=== PATIENT | male | born 1945 | race Caucasian/White ===

== ENCOUNTER 2024-09-24 17:05 | Emergency (ER) | payer OTHER, SELFPAY ==
--- NOTE | ~2024-09-24 | CT_ITS ---
CLINICAL HISTORY: swelling LLW, neg DVT, bakers rupture? CT left leg without contrast Comparison: US - US VENOUS DUPLEX LE LT - 09/24/24 21:16 EDT Findings: Extensive subcutaneous edema. Popliteal cyst with no evidence of rupture. No masses or fluid collections otherwise. Moderate to severe knee degenerative change with joint space loss most significant in the medial compartment. No significant ankle degenerative change. Physiologic fluid in the knee joint. No ankle effusion. Prominent vascular calcifications. Impression: 1. Extensive subcutaneous edema of uncertain etiology. 2. Popliteal cyst without evidence of rupture. This document has been electronically signed by: Gilma Callaway MD on 09/24/2024 22:45:51
--- NOTE | ~2024-09-24 | US_ITS ---
CLINICAL HISTORY: swelling, bakers Venous duplex ultrasound left lower extremity Comparison: None provided Findings: The visualized deep veins are fully compressible with normal Doppler color flow and spectral tracings. Simple popliteal cyst 4.1 x 1.4 x 2.6 cm. Subcutaneous edema. IMPRESSION: 1. Negative for left lower extremity deep vein thrombosis. This document has been electronically signed by: Gilma Callaway MD on 09/24/2024 22:45:04
[2024-09-24 17:39] VITALS: BP 143/69; PULSE 80; RESP 16; TEMP 35.9; O2SAT 98; BMI 29.8
--- NOTE | 2024-09-24 17:41 | ED.LOWEXIN ---
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 AFib, left leg swelling ongoing for about a week no redness or warmth or weeping. Denies history of lymphedema DVT. No injuries. Outpatient DVT ultrasound negative the did show a Grayson's cyst per her verbal report. There has been some intermittently bleeding left distal medial thigh varicose veins. Came in for swelling and evaluation from PCP Related Data Allergies Allergy/AdvReac Type Severity Reaction Status Date / Time No Known Allergies Allergy Verified 09/24/24 17:43 [facility] Social History Social History Alcohol intake: never Physical Exam Vital Signs: Vital Signs: Last Vital Signs Temp 98.5 F 09/25/24 04:11 Pulse 80 09/25/24 04:11 Resp 15 09/25/24 04:11 BP 133/70 09/25/24 04:11 Pulse Ox 99 09/25/24 04:11 O2 Del Method Room Air 09/25/24 04:11 BMI result Body Mass Index 29.8 EXAM: Gen: Alert, awake, well appearing, well hydrated. Head: Atraumatic Eyes: Anicteric, Normal conjunctiva. ENT: Moist mucosa, no pallor. ? Neck: Supple. Skin: ?No observable rash or bruising on exposed or examined skin Respiratory: Breathing comfortably, No distress.Clear to auscultation bilaterally, symmetric chest expansion, No wheeze, rales, ronchi. Cardiovascular: Regular rate and rhythm. No murmurs or rub. Well perfused periphery, warm extremities. No edema. ? Abdominal: No focal tenderness. Soft, no objective distension. No palpable masses or obvious organomegaly. ?No guarding, no rebound tenderness or other peritoneal findings. : No flank tenderness. Neuro: Alert. Gross movement of all extremities intact. ? Psych: Calm. Cooperative. MSK: Left lower extremity: Bandaged medial left distal thigh varicose veins no active bleeding or soaking of the pad. No surrounding erythema. Knee full range of motion no effusion palpable. Mild tenderness behind the knee. The calf compartment is mildly swollen perhaps 1+ pitting. No erythema no weeping. The compartments soft and easily compressible without pain. Active and passive ranging of the ankle without provoked pain. Well-perfused foot and digits. Vital signs: See flowsheet Const: Other: EXAM: Gen: Alert, awake, well appearing, well hydrated. Head: Atraumatic Eyes: Anicteric, Normal conjunctiva. ENT: Moist mucosa, no pallor. ? Neck: Supple. Skin: ?No observable rash or bruising on exposed or examined skin Respiratory: Breathing comfortably, No distress.Clear to auscultation bilaterally, symmetric chest expansion, No wheeze, rales, ronchi. Cardiovascular: Regular rate and rhythm. No murmurs or rub. Well perfused periphery, warm extremities. Left lower extremity edema from the ankle to the knee. No significant erythema no subcutaneous collections or fluctuance. ?Compartments are soft Abdominal: No focal tenderness. Soft, no objective distension. No palpable masses or obvious organomegaly. ?No guarding, no rebound tenderness or other peritoneal findings. : No flank tenderness. Neuro: Alert. Gross movement of all extremities intact. ? Psych: Calm. Cooperative. MSK: No grossly visible deformity. Vital signs: See flowsheet Course Course Course Narrative: 09/24/24 1741 BRAN Alegre This is a Rapid Medical Examination (RME) performed by Jesús De Leon PA-C in triage. Full HPI, ROS, assessment and treatment plan per primary provider in the Main ED. Hx: 79 yo M here for eval of LLE swelling x2-3 wks. had venous duplex at wing last Tuesday - neg for DVT, pos bakers cyst. worsening swelling to LLE. no pain. seen at walk in today, advised to come to ED for ?US v CT. hx of bypass on xarelto. Plan: labs Medications Administered Discontinued Medications Generic Name Dose Route Start Last Admin Trade Name Freq PRN Reason Stop Dose Admin Atorvastatin Calcium 40 mg 09/24/24 20:50 09/24/24 21:47 Atorvastatin Calcium 40 Mg Tablet PO 09/24/24 20:51 40 mg ONCE ONE Administration Furosemide 20 mg 09/24/24 20:50 09/24/24 21:47 Furosemide 20 Mg Tablet PO 09/24/24 20:51 20 mg ONCE ONE Administration Protocol Rivaroxaban 20 mg 09/24/24 20:50 09/24/24 21:47 Rivaroxaban 20 Mg Tablet PO 09/24/24 20:51 20 mg ONCE ONE Administration Medical Decision Making Medical Decision Making MDM Narrative: Medical Decision Makin-year-old male with left leg swelling. DVT ultrasound negative. Grayson cyst without rupture present again. CT without deep collection, gas or fascial thickening described. Patient has had this swelling for about a week and it seems to be correlated with the time of his intermittent bleeding of his varicose vein this could be dependent edema and/or dependent subcutaneous blood from the varicose vein bleeding. DVT is officially been excluded by 2 DVT ultrasounds over the past week including today. Grayson cyst is present does not look like it is ruptured although I initially considered could be ruptured with some dependent edema. Could be lymphedema and/or venous insufficiency from previous vein harvesting and/or lymphatic obstruction. Abdomen is nontender there was no swelling of the thigh to suggest intra-abdominal compression of the vascular or lymphatic structures. Preliminary Favored Differential Diagnosis: DVT, cellulitis less likely given no signs of warmth or fever or other infectious symptomatology, dependent edema, tracking synovial fluid from ruptured Grayson's cyst, Grayson cyst, lymphedema among additional considered etiologies Testing Interpreted Independently: Not Applicable Radiology or Lab testing Results Reviewed: Negative DVT ultrasound, lab work reassuring. Consults: Not Applicable Independent Historians/External Chart Reviews: Not Applicable Social Determinants of Health Impacting MDM/Planning: Not Applicable Lab Data 09/24/24 19:20 09/24/24 19:20 Labs: Lab Results 09/24/24 Range/Units 19:20 WBC 7.5 (4.8-10.8) X10*3/uL RBC 4.53 L (4.60-5.80) X10*6/uL Hgb 9.3 L (14.0-18.0) g/dl Hct 31.6 L (42.0-52.0) % MCV 69.8 L (80.0-98.0) fL MCH 20.5 L (27.0-33.0) pg MCHC 29.4 L (31.0-36.0) g/dl RDW 18.2 H (11.0-16.0) % Plt Count 325 (160-400) X10*3/uL MPV 9.1 L (9.4-12.4) fL Immature Gran % (Auto) 0.3 (0.0-0.4) % Neut % (Auto) 62.7 (45-73) % Lymph % (Auto) 19.2 L (20-40) % [place] % (Auto) 13.8 H (2-11) % Eos % (Auto) 3.1 (0-4) % Baso % (Auto) 0.9 (0-2) % Lymph # (Auto) 1.4 (1.2-4.9) X10*3/uL [place] # (Auto) 1.0 (0.1-1.2) X10*3/uL Eos # (Auto) 0.2 (0.0-0.4) X10*3/uL Baso # (Auto) 0.1 (0.0-0.2) X10*3/uL Abs Immat Gran (auto) 0.02 (0.00-0.03) X10*3/uL Absolute Neuts (auto) 4.7 (2.0-8.3) x10*3/uL Absolute Nucleated RBC 0.000 (0.0-0.012) X10*3/uL Nucleated RBC % (auto) 0.0 (0.0-0.2) /100WBC Sodium 138 (135-145) mmol/L Potassium 3.8 (3.3-5.1) mmol/L Chloride 103 (96-108) mmol/L Carbon Dioxide 26 (22-29) mmol/L Anion Gap 13 (12-20) BUN 16 (9-16) mg/dL Creatinine 1.38 (0.5-1.4) mg/dL Estim Creat Clear Calc 54.8 Estimated GFR 50 Random Glucose 104 (60-115) mg/dL Calcium 9.1 (8.4-10.2) mg/dL Magnesium 2.3 (1.6-2.6) mg/dL Total Bilirubin 3.5 H (0.0-1.0) mg/dL AST 33 (5-37) U/L ALT 24 (0-40) U/L Alkaline Phosphatase 127 H (39-117) U/L B-Natriuretic Peptide 779 H (<100) pg/mL Total Protein 6.8 (6.5-8.0) g/dL Albumin 4.0 (3.5-5.0) g/dL Discharge Plan Discharge Clinical Impression: Leg swelling Patient Disposition: Home, Self-Care Instructions: Leg Edema (ED) Additional Instructions: DISCHARGE DIAGNOSES: Swelling of the left lower leg unclear cause at this time HISTORY OF PRESENTATION: ?Swelling EMERGENCY DEPARTMENT COURSE,TESTS, TREATMENTS: While in the ED today you had a repeat ultrasound of your leg showing the Grayson's cyst without rupture and no signs of DVT in the left leg. You had a CT of the left lower leg without any alternative clear diagnosis. Lab work was reassuring DISCHARGE MEDICATIONS: ?[We have made no changes to your regular medication regimen] FOLLOW-UP: ?Call your primary or general physician soon as possible to discuss your symptoms, your ED visit and to discuss follow up plans Call PCP for follow up INSTRUCTIONS ?& RETURN PRECAUTIONS: If any symptoms change first call your primary physician, if it is after-hours your primary doctors office should have a provider coconut boiler you can speak with. If the symptoms are severe or very concerning to you then call 911 or return to the ED. Keep your leg elevated continue wearing compression stockings Stephen Cash MD Emergency Physician [facility] Interventions: ED Discharge Assessment Last Done: 09/25/24 04:11 Discharge Date/Time: 09/24/24 23:40 Print Language: Mongolian
[2024-09-24 19:27] LABS: MANUAL DIFF FLAG NO
[2024-09-24 19:28] LABS: Hematocrit 31.6 % (42.0-52.0); Hemoglobin 9.3 g/dl (14.0-18.0); Imm Gran Abs Auto 0.02 X10*3/uL (0.00-0.03); Imm Gran Pct Auto 0.3 % (0.0-0.4); Lymphocytes Absolute Auto 1.4 X10*3/uL (1.2-4.9); Mean Corpuscular HGB Conc 29.4 g/dl (31.0-36.0); Mean Corpuscular Hemoglobin 20.5 pg (27.0-33.0); Mean Corpuscular Volume 69.8 fL (80.0-98.0); NRBC Abs Auto 0.000 X10*3/uL (0.0-0.012); NRBC Pct Auto 0.0 /100WBC (0.0-0.2); Platelet Count 325 X10*3/uL (160-400); Red Blood Count 4.53 X10*6/uL (4.60-5.80); White Blood Count 7.5 X10*3/uL (4.8-10.8)
[2024-09-24 19:43] LABS: Alanine Aminotransferase 24 U/L (0-40); Albumin Level 4.0 g/dL (3.5-5.0); Alkaline Phosphatase 127 U/L (39-117); Anion Gap 13 (12-20); Aspartate Amino Transferase 33 U/L (5-37); Blood Urea Nitrogen 16 mg/dL (9-16); Calcium 9.1 mg/dL (8.4-10.2); Carbon Dioxide 26 mmol/L (22-29); Chloride 103 mmol/L (96-108); Creatinine Clr Calc Pharmacy 54.8; Estimated Glomerular Filt Rate 50; Magnesium 2.3 mg/dL (1.6-2.6); Potassium 3.8 mmol/L (3.3-5.1); Sodium 138 mmol/L (135-145); Total Protein 6.8 g/dL (6.5-8.0)
[2024-09-24 19:47] LABS: B Type Natriuretic Peptide 779 pg/mL (<100)
[2024-09-24 20:25] VITALS: BP 133/75; PULSE 80; RESP 14; TEMP 36.2; O2SAT 99
--- NOTE | 2024-09-24 20:38 | MHC.EVENTN ---
Pt states two weeks ago suffered from a ruptured varicose vein. Pt states he was seen at [facility] a few days ago and was dx'd w/ Bakers cyst but NOT a DVT. Pt sent back to ED for further re-eval since LLE continues to swell. Pt states he is able to work, no pain, but endorses increasing sob x past two month. Pt states he was also seen by vascular for this problem.
[2024-09-24 21:47] VITALS: BP 133/75
[2024-09-24 22:20] VITALS: BP 133/70; PULSE 80; RESP 15; TEMP 36.9; O2SAT 99
[2024-09-25 04:11] VITALS: BP 133/70; PULSE 80; RESP 15; TEMP 36.9; O2SAT 99
== END 2024-09-24 23:40 | disposition home or self-care (01) ==
PROVIDERS: Physician Assistant Medical; Emergency Provider Emergency Medicine; PCP Internal Medicine
DX: M79.89 Other specified soft tissue disorders (principal); I48.91 Unspecified atrial fibrillation; Z79.01 Long term (current) use of anticoagulants; Z95.1 Presence of aortocoronary bypass graft
CPT/HCPCS: 36415; 73700; 80053; 83735; 83880; 85025; 93971; 99284

== ENCOUNTER → 2024-09-24 21:01 | Outpatient (BNV) | payer OTHER, SELFPAY | PROVIDERS: Emergency Provider Emergency Medicine; PCP Internal Medicine; Visit Provider Radiology Diagnostic Radiology | DX: M71.22 Synovial cyst of popliteal space [Baker], left knee (principal); R60.0 Localized edema | CPT/HCPCS: 73700; 93971 ==